=== PATIENT | female | born 1960 | race Caucasian/White ===

== ENCOUNTER → 2017-11-02 | Outpatient (CLI) | payer BC ==
--- NOTE | 2017-11-02 14:01 | RADIOLOGY IMAGING REPORT ---
FACILITY: [facility] PATIENT NAME: TARYN OROURKE : [id number] MR: [id number] V: [id number] EXAM DATE: ORDERING PHYSICIAN: FUNMI HAUSER TECHNOLOGIST: Day Ansari PROCEDURE:BILATERAL DIGITAL SCREENING MAMMOGRAM WITH CAD ASSISTED INTERPRETATION & 3D TOMOSYNTHESIS COMPARISON:Prior mammograms 07/18/16, 05/12/15, 03/05/14, 01/08/13, 01/02/12, 11/11/10. INDICATIONS:screening FINDINGS: Mildly heterogeneous fibroglandular tissue is seen throughout the breasts. The parenchymal pattern has remained stable allowing for difference in mammographic technique & patient positioning. There is no evidence of malignant appearing mass, malignant appearing calcifications or other secondary sign of malignancy in either breast. DIAGNOSTIC CATEGORY 1--NEGATIVE. RECOMMENDATIONS: ROUTINE MAMMOGRAM AND CLINICAL EVALUATION. IMPRESSION: BIRADS 1: Negative No significant abnormality is seen. Dictated by: Rhoda Menjivar M.D. on 11/02/2017 at 13:26 Transcribed by: DARINEL on 11/02/2017 at 13:41 Approved by: Rhoda Menjivar M.D. on 11/02/2017 at 14:00 [facility]
== END ==
LOC: MAMO 04:04
PROVIDERS: ATTEND Family Medicine
DX: Z12.31 Encounter for screening mammogram for malignant neoplasm of breast (principal)
CPT/HCPCS: 77063; 77067

== ENCOUNTER → 2018-12-13 | Outpatient (CLI) | payer BC ==
--- NOTE | 2018-12-13 14:08 | RADIOLOGY IMAGING REPORT ---
FACILITY: [facility] [place] PATIENT NAME: TARYN OROURKE : [id number] MR: [id number] V: [id number] EXAM DATE: [id number] ORDERING PHYSICIAN: FUNMI HAUSER TECHNOLOGIST: Emilie Cintron PROCEDURE: BILATERAL DIGITAL SCREENING MAMMOGRAM WITH CAD ASSISTED INTERPRETATION & 3D TOMOSYNTHESIS REASON FOR STUDY: Screening FAMILY HISTORY OF BREAST CANCER: Maternal Grandmother in her 70's BREAST PROCEDURES/TREATMENTS: None COMPARISON: 11/02/17, 07/18/16, 05/12/15, 03/05/14, 01/08/13 VIEWS OBTAINED: Bilateral 2D & 3D full field CC & MLO projections BREAST DENSITY: The breasts are heterogeneously dense which can obscure small masses. MAMMOGRAM FINDINGS: The parenchymal pattern has remained stable allowing for difference in mammographic technique & patient positioning. IMPRESSION: BIRADS 1: Negative. DIAGNOSTIC CATEGORY 1--NEGATIVE. RECOMMENDATIONS: ROUTINE MAMMOGRAM AND CLINICAL EVALUATION. Dictated by: Rhoda Menjivar M.D. on 12/13/2018 at 13:33 Transcribed by: JEROME on 12/13/2018 at 13:50 Approved by: Rhoda Menjivar M.D. on 12/13/2018 at 14:06 [facility]
== END ==
LOC: MAMO 01:36
PROVIDERS: ATTEND Family Medicine
DX: Z12.31 Encounter for screening mammogram for malignant neoplasm of breast (principal); Z80.3 Family history of malignant neoplasm of breast
CPT/HCPCS: 77063; 77067